=== PATIENT | female | born 1970 | race Caucasian/White ===

== ENCOUNTER 2022-11-17 20:56 | Outpatient (REF) | payer BC, SELFPAY ==
[2022-11-21 14:10] LABS: Age Gdln ACOG Testing Note (.); HPV Aptima Negative (Negative); IGP, Aptima HPV, rfx 16/18,45 Note (.)
== END 2022-11-17 20:57 | disposition home or self-care (01) ==
LOC: LAB 20:56
PROVIDERS: Family Provider Obstetrics & Gynecology; PCP Obstetrics & Gynecology; Visit Provider Obstetrics & Gynecology
DX: Z12.4 Encounter for screening for malignant neoplasm of cervix (principal); Z11.51 Encounter for screening for human papillomavirus (HPV)
CPT/HCPCS: 87624; G0145

== ENCOUNTER 2022-11-25 10:00 | Outpatient (OUT) | payer BC, SELFPAY ==
--- NOTE | 2022-11-25 09:09 | ECG_ITS ---
[facility] Test Date: 2022-11-25 Pat Name: SARAH SUÁREZ Department: Room: - Gender: Female [employer]: : 1970 Requested By: J CARLOS MUSE Order Number: [id number] Reading MD: JENNIFER GRISSOM Measurements Intervals [place] Rate: 72 P: 41 CO: 179 QRS: 43 QRSD: 93 T: 22 QT: 361 QTc: 396 Interpretive Statements SINUS RHYTHM LOW QRS VOLTAGE IN PRECORDIAL LEADS [QRS DEFLECTION < 1.0 mV IN CHEST LEADS] No previous ECG available for comparison Electronically Signed On 11-26-2022 6:58:15 EDT by JENNIFER GRISSOM
== END 2022-11-26 00:01 | disposition home or self-care (01) ==
LOC: PST 11-27 16:19
PROVIDERS: Family Provider Obstetrics & Gynecology; PCP Obstetrics & Gynecology; Visit Provider Obstetrics & Gynecology
DX: Z01.810 Encounter for preprocedural cardiovascular examination (principal); R93.89 Abnormal findings on diagnostic imaging of other specified body structures; R10.2 Pelvic and perineal pain
CPT/HCPCS: 93005

== ENCOUNTER 2022-12-04 11:13 | Day surgery (SDC) | payer BC, SELFPAY ==
[2022-11-25 09:28] VITALS: BP 141/73; PULSE 81; RESP 14; TEMP 36.6; O2SAT 97; BMI 31.2
[2022-12-04] VITALS (15 sets, daily range): BP systolic 113–151; BP diastolic 54–85; PULSE 54–84; RESP 11–22; TEMP 35.9–36.2; O2SAT 96–100; BMI 30.5
[2022-12-04 11:26] LABS: Basophils Absolute Auto 0.1 10^3/uL (0.0-0.1); Basophils Percent Auto 1.1 % (0.2-2.0); Eosinophils Absolute Auto 0.1 10^3/uL (0.0-0.7); Eosinophils Percent Auto 1.9 % (0.9-7.0); Hematocrit 37.6 % (36.0-48.0); Hemoglobin 11.2 g/dL (12.0-16.0); Immature Granulocytes Abs Auto 0.01 10^3/uL (0.00-0.03); Immature Granulocytes Pct Auto 0.1 % (0.0-0.5); Lymphocytes Absolute Auto 2.4 10^3/uL (1.2-3.8); Lymphocytes Percent Auto 31.6 % (20.5-60.0); Mean Corpuscular HGB Conc 29.8 g/dL (29.9-35.2); Mean Corpuscular Hemoglobin 22.6 pg (26.7-34.0); Mean Platelet Volume 9.8 fL (9.5-13.5); Monocytes Absolute Auto 0.5 10^3/uL (0.3-0.8); Monocytes Percent Auto 6.7 % (1.7-12.0); Neutrophils Absolute Auto 4.4 10^3/uL (1.4-6.5); Neutrophils Percent Auto 58.6 % (43.0-75.0); Platelet Count 302 10^3/uL (150-450); Red Blood Count 4.95 10^6/uL (4.20-5.40); Red Cell Distribution Width 16.2 % (11.0-15.0); White Blood Count 7.4 10^3/uL (4.0-11.0)
[2022-12-04] MEDS: LACTATED RINGER'S SOLUTION 1,000 ML 50 ML IV (11:30)
[2022-12-04 11:40] LABS: HCG Quantitative <1 mIU/mL
--- NOTE | 2022-12-04 13:43 | PM.ONB ---
Brief Operative Note Date of procedure: 12/04/22 Pre-op diagnosis: pmb Post-op diagnosis: same Procedure: NAME OF PROCEDURE: [ d&c hysteroscopy with myosure] PROCEDURE: The patient was taken back to the Operating Room where she was prepped and draped in normal sterile fashion after being placed under general anesthesia without difficulty. She was also placed in the dorsal lithotomy position. A weighted speculum was placed in the patient's vagina. The anterior lip of the cervix was identified and grasped with a single tooth tenaculum. The patient's uterus was then sounded roughly to [ 9 ] cm. The patient was then gently dilated using Hegar dilators. The hysteroscope was passed through the patient's cervix into the uterus. Both ostia were identified. slightlythickened appearing endometrium. No gross evidence of polyps, fibroids or malignancy. Sharp currettage was peformed using the myosure The hysteroscope was then removed from the patient's uterus. The endometrial curettings were sent out to pathology. The single tooth tenaculum was then removed from the patient's anterior lip of the cervix where excellent hemostasis was noted. All instruments were removed from the patient's vagina. Anesthesia: K[facility]A Surgeon: Valeriy Redmond Estimated blood loss (mL): 5 Pathology: other (endometrial currettings) Condition: stable Disposition: floor
[2022-12-04] MEDS: HYDROMORPHONE HCL 0.5 MG/0.5 ML SYRINGE IV (14:04)
--- NOTE | 2022-12-04 14:19 | PC.NURSE ---
Reassessed pain after pain meds given. Patient states she does not feel any pain at this time. Currently drinking water. Nicki pad had very little blood drainage.
== END 2022-12-04 15:16 | disposition home or self-care (01) ==
PROVIDERS: Family Provider Obstetrics & Gynecology; PCP Family Medicine; Visit Provider Obstetrics & Gynecology
PROC: (CPT 58558; principal; 2022-12-04 12:30)
DX: R93.89 Abnormal findings on diagnostic imaging of other specified body structures (principal); N92.6 Irregular menstruation, unspecified; M81.0 Age-related osteoporosis without current pathological fracture; R10.2 Pelvic and perineal pain; Z79.899 Other long term (current) drug therapy; F41.9 Anxiety disorder, unspecified; J45.909 Unspecified asthma, uncomplicated; I10 Essential (primary) hypertension; K21.9 Gastro-esophageal reflux disease without esophagitis; E78.00 Pure hypercholesterolemia, unspecified
CPT/HCPCS: 58558; 36415; 84702; 85025; 88305; J1170; J2704

== ENCOUNTER 2022-12-29 10:59 | Outpatient (OUT) | payer BC, SELFPAY | END 2022-12-29 11:00 | disposition home or self-care (01) | LOC: PST 11:00 | PROVIDERS: Family Provider Obstetrics & Gynecology; PCP Family Medicine; Visit Provider Obstetrics & Gynecology | DX: Z01.818 Encounter for other preprocedural examination (principal); N92.0 Excessive and frequent menstruation with regular cycle; N93.9 Abnormal uterine and vaginal bleeding, unspecified; R10.2 Pelvic and perineal pain ==

== ENCOUNTER 2023-01-08 06:13 | Day surgery (SDC) | payer BC, SELFPAY ==
[2022-12-29 11:19] VITALS: BP 123/72; PULSE 71; RESP 16; TEMP 36.5; O2SAT 98; BMI 30.8
[2023-01-08] VITALS (10 sets, daily range): BP systolic 83–143; BP diastolic 48–77; PULSE 62–89; RESP 11–20; TEMP 36–36.8; O2SAT 94–100; BMI 31.3
[2023-01-08 06:26] LABS: Basophils Absolute Auto 0.1 10^3/uL (0.0-0.1); Eosinophils Absolute Auto 0.2 10^3/uL (0.0-0.7); Eosinophils Percent Auto 3.4 % (0.9-7.0); Hematocrit 36.6 % (36.0-48.0); Hemoglobin 11.1 g/dL (12.0-16.0); Immature Granulocytes Abs Auto 0.01 10^3/uL (0.00-0.03); Immature Granulocytes Pct Auto 0.2 % (0.0-0.5); Lymphocytes Absolute Auto 2.1 10^3/uL (1.2-3.8); Lymphocytes Percent Auto 33.1 % (20.5-60.0); Mean Corpuscular HGB Conc 30.3 g/dL (29.9-35.2); Mean Corpuscular Hemoglobin 23.1 pg (26.7-34.0); Mean Corpuscular Volume 76.1 fL (81.0-99.0); Mean Platelet Volume 9.8 fL (9.5-13.5); Monocytes Absolute Auto 0.5 10^3/uL (0.3-0.8); Monocytes Percent Auto 7.3 % (1.7-12.0); Neutrophils Absolute Auto 3.5 10^3/uL (1.4-6.5); Platelet Count 308 10^3/uL (150-450); Red Blood Count 4.81 10^6/uL (4.20-5.40); White Blood Count 6.3 10^3/uL (4.0-11.0)
[2023-01-08 06:46] LABS: HCG Quantitative 4 mIU/mL
[2023-01-08] MEDS: LACTATED RINGER'S SOLUTION 1,000 ML 50 ML IV (07:06)
--- NOTE | 2023-01-08 08:01 | PM.ONB ---
Brief Operative Note Date of procedure: 01/08/23 Pre-op diagnosis: menorrhagia Post-op diagnosis: same as pre-op Procedure: NAME OF PROCEDURE:[ blaire endometrial ablation with hysteroscopy] PROCEDURE: The patient was taken back to the OR where she was prepped and draped in the normal sterile fashion after being placed in the dorsal lithotomy position, after being placed under general anesthesia without difficulty. The anterior lip was grasped with a single tooth tenaculum. The patient was then gently sounds. The patient was gently sounded using Hegar dilators and the hysteroscope was passed through the cervix into the uterus where both ostia were seen. No gross evidence of polyps, fibroids or malignancy. A weighted speculum was placed in the patient?s vagina, the anterior tip of the cervix was identified and grasped with a single tooth tenaculum. The patient was gently sounded to roughly 9 cm. The cervical length was noted to be 5 cm. The Blaire ablation apparatus was set to approximately 5 in length. This was placed in through the cervix and into the uterus. After the seal was tested, at that time the total ablation of 120 seconds was performed with the Blaire without difficulty. All instruments were removed from the vagina. Anesthesia: KHOA Surgeon: Valeriy Redmond Estimated blood loss (mL): 5 Pathology: none sent Condition: stable Disposition: PACU
[2023-01-08] MEDS: LACTATED RINGER'S SOLUTION 1,000 ML 150 ML IV (08:23)
== END 2023-01-08 09:15 | disposition home or self-care (01) ==
PROVIDERS: Family Provider Obstetrics & Gynecology; PCP Family Medicine; Visit Provider Obstetrics & Gynecology
PROC: (CPT 58563; principal; 2023-01-08 07:30)
DX: N92.0 Excessive and frequent menstruation with regular cycle (principal); N93.9 Abnormal uterine and vaginal bleeding, unspecified; R10.2 Pelvic and perineal pain; R93.89 Abnormal findings on diagnostic imaging of other specified body structures; I10 Essential (primary) hypertension; E78.00 Pure hypercholesterolemia, unspecified; J45.909 Unspecified asthma, uncomplicated
CPT/HCPCS: 58563; 36415; 84702; 85025; J2704

== ENCOUNTER 2023-12-14 20:28 | Outpatient (REF) | payer BC, SELFPAY | END 2023-12-14 20:29 | disposition home or self-care (01) | LOC: LAB 20:28 | PROVIDERS: Family Provider Obstetrics & Gynecology; PCP Family Medicine; Visit Provider Physician Assistant | DX: Z01.419 Encounter for gynecological examination (general) (routine) without abnormal findings (principal) | CPT/HCPCS: 88175 ==